=== PATIENT | female | born 1950 | race Caucasian/White ===

== ENCOUNTER 2016-11-05 07:48 | Emergency (ER) | payer MEDICARE ==
[2016-11-05 07:52] VITALS: RESP 16; TEMP 98; O2SAT 99; BMI 24.0
[2016-11-05] MEDS ORDERED: Oxycodone/Acetaminophen 5/325 mg Tab PO ONE (08:10)
--- NOTE | 2016-11-05 08:14 | ED PDOC ---
HPI: Back Time Seen by Provider: 11/05/16 07:54 Chief Complaint (Provider): Back pain History Per: Patient History/Exam Limitations: no limitations Onset/Duration Of Symptoms: Days (2 weeks) Current Symptoms Are (Timing): Still Present Additional Complaint(s): Low back pain across lower. No numbness, tingles, weakness. No incontinence or constipation. Ambulating with the pain. No abd pain. No nausea, vomit. 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 No leg pain. States same happen 15 years ago and was spasms. Past Medical History Reviewed: Nursing Documentation, Vital Signs Vital Signs: Last Vital Signs Temp 98.0 F 11/05/16 07:51 Pulse 85 11/05/16 07:51 Resp 16 11/05/16 07:51 BP 130/68 11/05/16 07:51 Pulse Ox 99 11/05/16 07:51 - Medical History PMH: Anxiety, Atrial Fibrillation, Back Problems, HTN, Hypercholesterolemia - Family History Family History: States: Unknown Family Hx, Hypertension - Home Medications Home Medications: Ambulatory Orders Medication Instructions Recorded ALPRAZolam [Xanax] 0.25 mg PO TID 02/11/16 Aspirin [Ecotrin] 81 mg PO DAILY 02/11/16 Atorvastatin [Lipitor] 10 mg PO HS 02/11/16 Ergocalciferol (Vitamin D2) 50,000 unit PO SUN 02/11/16 [Vitamin D2] Metoprolol Succinate [Toprol XL] 25 mg PO DAILY 02/11/16 QUEtiapine [Seroquel XR] 100 mg PO HS 02/11/16 Temazepam [Restoril] 30 mg PO HS 02/11/16 Apixaban [Eliquis] 2.5 mg PO DAILY #0 tablet 02/13/16 - Allergies Allergies/Adverse Reactions: Allergies Allergy/AdvReac Type Severity Reaction Status Date / Time No Known Allergies Allergy Verified 11/05/16 08:01 Review of Systems ROS Statement: Except As Marked, All Systems Reviewed And Found Negative Musculoskeletal: Positive for: Back Pain Physical Exam - Reviewed Nursing Documentation Reviewed: Yes Vital Signs Reviewed: Yes - Physical Exam Appears: Positive for: Well, Non-toxic, No Acute Distress Head Exam: Positive for: ATRAUMATIC, NORMAL INSPECTION, NORMOCEPHALIC Skin: Positive for: Normal Color, Warm, DRY Eye Exam: Positive for: EOMI, Normal appearance, PERRL ENT: Positive for: Normal ENT Inspection Neck: Positive for: Normal, Painless ROM Cardiovascular/Chest: Positive for: Regular Rate, Rhythm Respiratory: Positive for: CNT, Normal Breath Sounds Gastrointestinal/Abdominal: Positive for: Normal Exam, Bowel Sounds, Soft. Negative for: Tenderness Back: Positive for: Other (mild tender across lower; no erythema or deformity) Extremity: Positive for: Normal ROM. Negative for: Tenderness, Pedal Edema Neurologic/Psych: Positive for: Alert, Oriented - ECG O2 Sat by Pulse Oximetry: 99 - Radiology X-Ray: Interpreted by Me, Viewed By Me X-Ray Interpretation: No Acute Disease - Progress ED Course And Treament: 922: Stable. AAOx3. Pain free. Tolerated PO. Fu with pcp. Ambulating with no issues. Disposition - Clinical Impression Clinical Impression: Low back pain - Patient ED Disposition Is Patient to be Admitted: No - Disposition Referrals: [facility] [Outside] - 11/06/16 Disposition: Routine/Home Disposition Time: :23 Condition: STABLE Additional Instructions: Return if not better in 3 days. Instructions: Acute Low Back Pain (ED) Forms: [facility] ED School/Work Excuse
[2016-11-05 10:06] VITALS: BP 130/70; PULSE 82
--- NOTE | 2016-11-05 16:20 | RAD ---
PROCEDURE: Radiographs of the Lumbar Spine. HISTORY: back pain No antecedent history of trauma provided. COMPARISON: 03/09/2013. FINDINGS: BONES: Mild scoliosis, secondary degenerative change. DISC SPACES: Mild disc space narrowing at multiple levels. Stable anterolisthesis lumbosacral junction. OTHER FINDINGS: None. IMPRESSION: No acute findings related to/accounting for the clinical presentation. No significant interval change compared to the prior examination(s). Concordant results with the preliminary interpretation rendered by the emergency department physician procedure.
== END 2016-11-05 10:05 | disposition home or self-care (01) ==
LOC: H.ER 07:48
DX: M54.5 Low back pain (principal); E78.00 Pure hypercholesterolemia, unspecified; Z79.01 Long term (current) use of anticoagulants; Z79.82 Long term (current) use of aspirin; I10 Essential (primary) hypertension